=== PATIENT | female | born 1975 | race African-American/Black ===

== ENCOUNTER 2017-09-06 23:49 | Emergency (ER) | payer OTHER ==
[2017-09-06 23:56] VITALS: BP 135/76; BMI 33.3
--- NOTE | 2017-09-07 01:41 | DR.GENAD ---
HPI - PCP Primary Care Physician: ZANE CRONIN - Complaint/Symptoms Chief Complaint Doctors Comments: Patient present with complaint of epigastric pain for unlimited time. Pain s/p eating. Chief Complaint:: STOMACH PAIN; BM X 3 D/T LAXATIVE; CAN'T EAT; NAUSEATED; SHARP PAIN MID ABDOMEN RADIATES TO BACK Self Treatment fo Chief Complaint: NO TX - Source History Provided: Patient - Mode of Arrival Mode of Arrival: Ambulatory - Timing Onset of Chief Complaint: 09/05/17 PMH - PMH Past Medical History: Yes Past Medical History: Diabetes, Hypertension Past Medical History Comment: METFORMIN; LOSARTAN Past Surgical History: No Surgical History: Cholecystectomy Past Surgical History Comment: RIGHT KNEE ; ABLASION; TUBAL - Family History History of Family Medical Conditions: No - Social History Type of Tobacco Use: None Alcohol Use: None Do you use any recreational Drugs:: No Lives With: Spouse Lives Where: Home - infectious screening In the last 2 months have you had wt loss of >10#?: NO Have you had fever, night sweats or hemotysis?: No Have you traveled outside the country in the last 6 months?: No Isolation: Standard ROS - Review of Systems Eyes: No Symptoms Reported ENTM: No Symptoms Reported Respiratoy: No Symptoms Reported Cardiovascular: No Symptoms Reported Gastrointestinal/Abdominal: No Symptoms Reported Genitourinary: No Symptoms Reported Neurological: No Symptoms Reported Musculoskeletal: No Symptoms Reported Integumentary: No Symptoms Reported Hematologic/Lymphatic: No Symptoms Reported Endocrine: No Symptoms Reported Psychiatric: No Symptoms Reported All Other Systems: Reviewed and Negative PE - Vital Signs Vitals: Temperature 98.4 F Pulse Rate 82 Respiratory Rate 20 Blood Pressure 135/76 O2 Sat by Pulse Oximetry 99 - General General Appearance: Alert, In No Apparent Distress - Head Head Exam: Normal Inspection, Atraumatic - Eyes Eye exam: Normal Appearance, PERRL, EOMI - ENT ENT Exam: Normal Exam External Ear Exam: Normal External Inspection TM/Canal Exam: Bilateral Normal Nose Exam: Normal Nose Exam Mouth Exam: Normal Inspection Throat Exam: Normal Inspection - Neck Neck Exam: Normal Inspection, Full ROM - Chest Chest Inspection: Normal Inspection - Respiratory Respiratory Exam: Normal Lung Sounds Bilat Respiratory Exam: Bilateral Clear to Auscultation - Cardiovascular Cardiovascular Exam: Regular Rate, Normal Rhythm - Abdominal Exam Abdominal Exam: Normal Inspection Abdominal Tenderness: negative: RUQ, RLQ, LUQ, LLQ, Epigastrium, Suprapubic, Diffuse, Mild, Moderate, Severe, Other - Extremities Extremities Exam: Normal Inspection, Full ROM - Back Back Exam: Normal Inspection - Neurologic Neurological Exam: Alert, Oriented X3, CN II-XII Intact - Psychiatric Psychiatric Exam: Normal Affect - Skin Skin Exam: Warm, Dry Course - Reevaluation 1st: Unchanged ROR - Labs Reviewed Laboratory Results Reviewed?: Yes (H Pylori positive) Result Diagrams: 09/07/17 02:00 09/07/17 02:00 Laboratory: WBC 5.4 X10^3/uL (3.6-10.0) 09/07/17 02:00 RBC 4.08 X10^6/uL (3.5-5.4) 09/07/17 02:00 Hgb 12.9 g/dL (12.0-16.0) 09/07/17 02:00 Hct 37.2 % (36.0-47.0) 09/07/17 02:00 MCV 91.2 fL (80.0-100.0) 09/07/17 02:00 MCH 31.5 pg (27.0-34.0) 09/07/17 02:00 MCHC 34.6 g/dL (33.0-35.0) 09/07/17 02:00 RDW 13.6 % (11.6-16.5) 09/07/17 02:00 Plt Count 337 X10^3/uL (150.0-450.0) 09/07/17 02:00 MPV 8.7 fL (7.4-11.0) 09/07/17 02:00 Neut % 34.9 % (42.0-75.0) L 09/07/17 02:00 Lymph % 54.6 % (21.0-51.0) H 09/07/17 02:00 Union % 8.7 % (0.0-13.0) 09/07/17 02:00 Eos % 1.4 % (0.9-2.9) 09/07/17 02:00 Baso % 0.4 % (0.2-1.0) 09/07/17 02:00 Neut # 1.9 x10^3/uL (2.2-4.8) L 09/07/17 02:00 Lymph # 2.9 X10^3/uL (1.3-2.9) 09/07/17 02:00 Union # 0.5 x10^3/uL (0.3-0.8) 09/07/17 02:00 Eos # 0.1 x10^3/uL (0.0-0.2) 09/07/17 02:00 Baso # 0.0 X10^3/uL (0.0-0.1) 09/07/17 02:00 Absolute Nucleated RBC 0.0 /100WBC 09/07/17 02:00 Sodium 140 mmol/L (136-145) 09/07/17 02:00 Corrected Sodium TNP 09/07/17 02:00 Potassium 3.6 mmol/L (3.5-5.1) 09/07/17 02:00 Chloride 104 mmol/L (98-107) 09/07/17 02:00 Carbon Dioxide 29.5 mmol/L (21-32) 09/07/17 02:00 BUN 10 mg/dL (7-18) 09/07/17 02:00 Creatinine 0.82 mg/dL (0.55-1.02) 09/07/17 02:00 Est GFR (MDRD) Af Amer > 60 (>60) 09/07/17 02:00 Est GFR (MDRD) Non-Af > 60 (>60) 09/07/17 02:00 Glucose 106 mg/dL (65-99) H 09/07/17 02:00 Calcium 8.5 mg/dL (8.5-10.1) 09/07/17 02:00 Corrected Calcium TNP 09/07/17 02:00 Total Bilirubin 0.80 mg/dL (0.2-1.0) 09/07/17 02:00 AST 18 Units/L (15-37) 09/07/17 02:00 ALT 26 Units/L (12-78) 09/07/17 02:00 Alkaline Phosphatase 55 Units/L (46-116) 09/07/17 02:00 C-Reactive Protein 9.80 mg/L (0-3.0) H 09/07/17 02:00 Total Protein 7.9 g/dL (6.4-8.2) 09/07/17 02:00 Albumin 3.8 g/dL (3.4-5.0) 09/07/17 02:00 Globulin 4.1 g/dL (2.5-4.5) 09/07/17 02:00 Albumin/Globulin Ratio 0.9 Ratio (1.1-2.1) L 09/07/17 02:00 H. pylori IgG Antibody Positive (NEGATIVE) A 09/07/17 02:00 - XRAY XRAY Interpreted by: Radiologist (Acute Abdominal Series: Chest no acute abenormality, Abdomen: normal gas pattern no acute abnormality) - Diagnosis Discharge Problem: Helicobacter pylori gastritis - Discharge Plan Condition: Stable - Follow ups/Referrals Follow ups/Referrals: Zane Cronin [Primary Care Provider] - 3 days - Instructions
[2017-09-07 02:18] LABS: BASOPHILS % (AUTO) 0.4 % (0.2-1.0); EOSINOPHILS # (AUTO) 0.1 x10^3/uL (0.0-0.2); EOSINOPHILS % (AUTO) 1.4 % (0.9-2.9); HEMATOCRIT 37.2 % (36.0-47.0); HEMOGLOBIN 12.9 g/dL (12.0-16.0); LYMPHOCYTES # (AUTO) 2.9 X10^3/uL (1.3-2.9); LYMPHOCYTES % (AUTO) 54.6 % (21.0-51.0); MEAN CORPUSCULAR HEMOGLOBIN 31.5 pg (27.0-34.0); MEAN CORPUSCULAR HGB CONC 34.6 g/dL (33.0-35.0); MEAN CORPUSCULAR VOLUME 91.2 fL (80.0-100.0); MEAN PLATELET VOLUME 8.7 fL (7.4-11.0); MONOCYTES # (AUTO) 0.5 x10^3/uL (0.3-0.8); MONOCYTES % (AUTO) 8.7 % (0.0-13.0); NEUTROPHILS # (AUTO) 1.9 x10^3/uL (2.2-4.8); NEUTROPHILS % (AUTO) 34.9 % (42.0-75.0); PLATELET COUNT 337 X10^3/uL (150.0-450.0); RED BLOOD COUNT 4.08 X10^6/uL (3.5-5.4); RED CELL DISTRIBUTION WIDTH 13.6 % (11.6-16.5); WHITE BLOOD COUNT 5.4 X10^3/uL (3.6-10.0)
--- NOTE | 2017-09-07 02:21 | RAD ---
Acute abdomen series three views Indication: Abdominal pain and nausea Findings: There is no pneumothorax, effusion or consolidation. Heart size is normal. Bowel gas patter n is normal. Gas and stool are seen in the colon. No free air or pneumatosis seen. No dilated loop of small bowel seen. No abnormal calcific densities seen. Impression: No acute abnormality Reported By:
[2017-09-07 02:27] LABS: ALANINE AMINOTRANSFERASE 26 Units/L (12-78); ALBUMIN 3.8 g/dL (3.4-5.0); ALKALINE PHOSPHATASE 55 Units/L (46-116); ASPARTATE AMINO TRANSFERASE 18 Units/L (15-37); BLOOD UREA NITROGEN 10 mg/dL (7-18); CALCIUM 8.5 mg/dL (8.5-10.1); CARBON DIOXIDE 29.5 mmol/L (21-32); CHLORIDE 104 mmol/L (98-107); CREATININE 0.82 mg/dL (0.55-1.02); SODIUM 140 mmol/L (136-145); TOTAL PROTEIN 7.9 g/dL (6.4-8.2); eGFR BLACK RACES > 60 (>60); eGFR NON BLACK RACES > 60 (>60)
[2017-09-07] MEDS ORDERED: DIFLUCAN PO STA (03:05)
[2017-09-07] MEDS ORDERED: DIFLUCAN ONE (03:05)
== END 2017-09-07 03:00 | disposition home or self-care (01) ==
LOC: ER 23:49
DX: B96.81 Helicobacter pylori [H. pylori] as the cause of diseases classified elsewhere (principal); R10.13 Epigastric pain
CPT/HCPCS: 36415; 74022; 80053; 85025; 86140; 86677; 99282; 99283